=== PATIENT | male | born 1960 | race Caucasian/White ===

== ENCOUNTER 2023-07-12 07:23 | Emergency (ER) | payer OTHER, SELFPAY ==
[2023-07-12 07:36] VITALS: BP 135/88
--- NOTE | 2023-07-12 08:29 | ED.GENMED ---
History of Present Illness
<BARBARA Fritz - Last Filed: 07/12/23 15:54>
General
Chief Complaint: Musculo-Skeletal Complaint
Source: patient
Exam Limitations: none
Time Seen by Provider: 07/12/23 07:51
Nursing documentation reviewed up to this point in time: agreed with
Travel History
Have you had any contact with someone who has COVID-19?: No
Do you have any symptoms of coronavirus? Fever > 100 degrees, chills, cough, shortness of breath, sore throat, loss of taste or smell, muscle aches, or headache?: No
History of Present Illness
History of Present Illness:
62 yr old male presents to the ED with c/o of stiff neck that started since yesterday. Patient denies any injury. He complains of pain with movement especially moving his neck to the left. He denies any injury but was unsure if he slept wrong.
He has been taken aspirin without relief.
He also complains of a sore throat for the past 5 days. Denies any actual fever. He has a chronic cough since having COVID 4 months ago. He denies any fevers. He is concerned that this neck pain likely shingles but denies any actual rash. He
denies any radiation of pain. He denies any numbness tingling weakness of extremities.
Past History
<BARBARA Fritz - Last Filed: 07/12/23 15:54>
Past History
ED Past Medical History: HTN, Hypercholesterolemia and Other (diverticulitis)
ED Past Surgical History: Appendectomy and Bowel resection
Social History
Tobacco: Non-smoker
Alcohol: Occasional
Drug: None
Personal:
Living: with family
Employment: Employed
Review of Systems
<BARBARA Fritz - Last Filed: 07/12/23 15:54>
Review of Systems
Allergies reviewed?: Yes
All Other Systems: ROS reviewed and negative except as documented in HPI and ROS
Constitutional: Reports no symptoms; Denies fever, fatigue or chills
EENT: Reports sore throat
Respiratory: Reports cough; Denies trouble breathing
Cardiac: Reports no symptoms
ABD/GI: Reports no symptoms
: Reports no symptoms
Musculoskeletal: Reports neck pain (left sided neck pain )
Skin: Reports no symptoms; Denies rash
Neurological: Reports no symptoms; Denies numbness
Phy Exam
<BARBARA Fritz - Last Filed: 07/12/23 15:54>
General Physical Exam
General Presentation: no apparent distress
General age: appears stated age
General Skin: warm and dry
General Habitus: normal
General Mental: alert
General Hydration: appears well hydrated
ENT Exam
ENT Exam: EOMI, pharyngeal erythema and other (no swelling no drooling , no exudate )
Eye Exam
Eye Exam: PERRL
Eye Exam General: PERRL: bilateral and EOM intact: bilateral
Cardiovascular Exam
Cardiovascular Exam: regular rate/rhythm, no murmur and normal peripheral pulses
Pulmonary Exam
Pulmonary Exam: lungs clear and no respiratory distress
Neurological Exam
Neurological Exam: alert and oriented x3
Musculoskeletal Exam
Musculoskeletal Exam: other (Patient is tender to left lateral paracervical muscles with discomfort with range of motion moving neck to the left)
Skin Exam
Skin Exam: normal color and warm/dry
Psychiatric Exam
Psychiatric Exam: normal mood/affect
Course
<BARBARA Fritz - Last Filed: 07/12/23 15:54>
Orders/Labs/Results
Orders:
Orders
07/12/23 08:25
IV Insert/Care/Rem.- Treatment PRN
0.9% Sodium Chloride 1000 ml [Nss] 1,000 ml IV BOLUS
Ketorolac [Toradol] 15 mg IV NOW STA
diazePAM [Valium Injection] 2 mg IV NOW STA
07/12/23 08:28
CT Neck With Iv Contrast Urgent
Comment:
Reason For Exam: sore throat/neck pain
07/12/23 08:49
Complete Blood Count/With Diff Urgent
Comprehensive Metabolic Panel Urgent
Rapid Strep Group A Urgent
CHRISTIANO Source: Throat/Pharynx
Specimen Description:
Date Specimen was Collected: 07/12/23
Time Specimen was Collected: 08:40
07/12/23 08:51
Dexamethasone Sod Phosphate [Decadron] 10 mg IV NOW STA
Abnormal Lab Results
07/12/23
08:49
RBC 4.02 L 10^6/uL
(4.70-6.10)
Hct 38.5 L %
(39.0-52.0)
MCV 95.8 H fL
(80.0-94.0)
MCH 33.3 H pg
(27.0-31.0)
MPV 11.6 H fL
(7.4-10.4)
Abs Immat Gran (auto) 0.1 H 10^3/uL
(0-0.05)
Absolute Monos (auto) 0.7 H 10^3/uL
(0.1-0.6)
Glucose 125 H mg/dl
(70-99)
07/12/23 08:49
07/12/23 08:49
Vital Signs
Initial and Last Documented VS:
Initial Vital Signs
Temp Pulse Resp BP Pulse Ox
98.0 F 90 16 135/88 96
07/12/23 07:36 07/12/23 07:36 07/12/23 07:36 07/12/23 07:36 07/12/23 07:36
Last Documented Vital Signs
Temp Pulse Resp BP Pulse Ox
98.0 F 78 16 135/79 96
07/12/23 07:36 07/12/23 12:31 07/12/23 12:31 07/12/23 12:31 07/12/23 07:36
[address] Bailiff Or Sheriff consulted with Physician
Court Bailiff Or Sheriff consulted with physician?: Yes
Name of Physician Consulted: Deonte
<Ancelmo Clemons, - Last Filed: 07/12/23 13:17>
Orders/Labs/Results
Orders:
Orders
07/12/23 08:25
IV Insert/Care/Rem.- Treatment PRN
0.9% Sodium Chloride 1000 ml [Nss] 1,000 ml IV BOLUS
Ketorolac [Toradol] 15 mg IV NOW STA
diazePAM [Valium Injection] 2 mg IV NOW STA
07/12/23 08:28
CT Neck With Iv Contrast Urgent
Comment:
Reason For Exam: sore throat/neck pain
07/12/23 08:49
Complete Blood Count/With Diff Urgent
Comprehensive Metabolic Panel Urgent
Rapid Strep Group A Urgent
CHRISTIANO Source: Throat/Pharynx
Specimen Description:
Date Specimen was Collected: 07/12/23
Time Specimen was Collected: 08:40
07/12/23 08:51
Dexamethasone Sod Phosphate [Decadron] 10 mg IV NOW STA
Abnormal Lab Results
07/12/23
08:49
RBC 4.02 L 10^6/uL
(4.70-6.10)
Hct 38.5 L %
(39.0-52.0)
MCV 95.8 H fL
(80.0-94.0)
MCH 33.3 H pg
(27.0-31.0)
MPV 11.6 H fL
(7.4-10.4)
Abs Immat Gran (auto) 0.1 H 10^3/uL
(0-0.05)
Absolute Monos (auto) 0.7 H 10^3/uL
(0.1-0.6)
Glucose 125 H mg/dl
(70-99)
07/12/23 08:49
07/12/23 08:49
Vital Signs
Initial and Last Documented VS:
Initial Vital Signs
Temp Pulse Resp BP Pulse Ox
98.0 F 90 16 135/88 96
07/12/23 07:36 07/12/23 07:36 07/12/23 07:36 07/12/23 07:36 07/12/23 07:36
Last Documented Vital Signs
Temp Pulse Resp BP Pulse Ox
98.0 F 78 16 135/79 96
07/12/23 07:36 07/12/23 12:31 07/12/23 12:31 07/12/23 12:31 07/12/23 07:36
<BARBARA Fritz - Last Filed: 07/12/23 15:54>
MDM/Problems Addressed
Differential Diagnosis Includes:
Not limited to viral syndrome, strep throat, torticollis, less likely radicular pain less likely abscess
MDM/Problems Addressed:
Patient is a 62-year-old male who presented with left-sided neck pain worse with movement. He also complained of a sore throat for the past several days. He denies any numbness tingling weakness to left arm or pain that radiates. Patient was eval
by Dr. Clemons symptoms are likely torticollis. With sore throat neck pain CAT scan ordered and currently pending. Patient was treated with Valium Decadron feeling improved relief. Labs unremarkable.
Patient is negative for strep throat. Patient also mentioned mild complaint of knee pain will need Ortho follow-up for this.
If CT negative plan to discharge home with Valium/moist heat/NSAIDS .
1305: CT negative for abscess findings suggesting mild tonsillitis,rapid strep negative patient with normal white count stable stable hemoglobin unremarkable kidney function. Patient feeling better from IV Valium and Decadron. Symptoms are
consistent with mild sore throat viral syndrome. Likely torticollis, muscular pain.
<BARBARA Fritz - Last Filed: 07/12/23 15:54>
*Radiology
Radiology exam reviewed: radiology read reviewed
*Pulse Oximetry
Patient hypoxic: no
*Critical Care Note
Total Time (30-74mins, 75-104mins- exclusive of procedures): Not Applicable
ED Attending Note
<BARBARA Fritz - Last Filed: 07/12/23 15:54>
-
Portions of this chart may have been created with voice recognition software.� Occasional wrong word or��sound alike� substitutions may have occurred due to the inherent limitations of voice recognition software.
<Ancelmo Clemons DO - Last Filed: 07/12/23 13:17>
ED Attending Note
Patient seen and examined by attending physician: Yes
I performed the substantive portion of visit, reviewed & personally made and approve the management plan that is documented in note by myself or PAULO.: Yes
ED Attending Note:
Patient is a 62-year-old male who has a history of stiff neck and left neck pain that he awoke with couple days ago and is becoming more pain. Patient has had a sore throat for the past 5 days but denies any fever or chills. Patient's been having
a chronic cough since COVID 4 months ago. Patient does smoke. Patient denies weight loss. Patient denies any difficulty swallowing or handling his secretions. Patient is to see pulmonary in a few days. Patient denies any numbness or
paresthesias or weakness of the upper extremities or lower extremities. Patient denies any recent injuries. Physical exam patient does appear to be having moderate distress secondary to neck pain. Patient is tender along left strap muscles.
Oropharynx is erythematous with mild edema. Heart is regular lungs are clear. Patient will be treated with steroids after the CT scan and lab work was done. Patient needs benzodiazepines for muscle spasm/torticollis.
Discharge Plan
Departure
Patient Disposition: Home (Routine Discharge)
Date of Disposition: 07/12/23
Time of Disposition: 13:09
Patient with high blood pressure during this ER visit?: Yes
Condition: Fair
Discharge Problem:
Acute torticollis, Acute sore throat
Instructions: Torticollis (DC), BLOOD PRESSURE, Sore Throat - Adult
Prescriptions:
New
diazepam [Valium] 5 mg tablet
5 mg PO TID PRN (Reason: muscle spasm) Qty: 10 0RF
prednisone 50 mg tablet
50 mg PO DAILY Qty: 4 0RF
No Action
atorvastatin 80 MG tablet
80 mg PO DAILY
amlodipine 2.5 MG tablet
2.5 mg PO DAILY
valsartan [Diovan] 320 MG tablet
320 mg PO DAILY
cholecalciferol (vitamin D3) 1,000 UNITS tablet
1,000 units PO DAILY
[id number] [Centrum Silver Men] 1 EACH tablet
1 ea PO DAILY
omeprazole 20 MG tablet,disintegrat, delay rel
20 mg PO DAILY
ondansetron 4 MG tablet,disintegrating
4 mg PO TIDPRN PRN (Reason: nausea/vomiting) Qty: 9 0RF
Referrals:
Katharine Lee MD [Family Provider] -
Irvin Lacey MD [Active] -
Activity Restrictions/Additional Instructions:
As discussed you have a viral sore throat and symptoms are consistent with muscle pain of your neck, torticollis(stiff neck).
A prescription for Valium for muscle relaxer was sent to your pharmacy. This medication will cause drowsiness no driving or drinking alcohol on this medication. Avoid clonazepam while taking this medication. Warm moist heat to neck several times
a day. Do gentle range of motion exercises as discussed
Regarding sore throat a prescription for prednisone was sent to the pharmacy for the next 4 days. Take as directed. Gargle with warm salt water. Stay well-hydrated
Follow-up with your family doctor in extremities for reevaluation of your symptoms.
Regarding your history of knee pain follow up with your orthopedic doctor.
Interventions
Interventions:
*Risk Screen - Suicide Last Done: 07/12/23 07:55
*General Assessment Last Done: 07/12/23 07:55
*Neglect/Abuse Screening Last Done: 07/12/23 07:55
ED- Fall Risk Assessment Last Done: 07/12/23 07:55
*ED COVID-19 Vaccine History Last Done: 07/12/23 07:36
*Nursing Disposition Last Done: 07/12/23 13:33
ED-Musculoskeletal Assessment Last Done: 07/12/23 07:55
Discharge Date and Time
Discharge Date/Time: 07/12/23 13:34
[2023-07-12] MEDS: NSS 1000 IV (08:51)
[2023-07-12] MEDS: TORADOL 15 MG IV (08:52)
[2023-07-12] MEDS: VALIUM INJECTION 2 MG IV (08:53)
[2023-07-12 09:07] LABS: % Basophils 1.2 % (0-2); % Eosinophils 2.2 % (0-6); % Immature Granulocytes 0.5 % (0-0.5); % Lymphocytes 23.2 % (20.5-51.1); % Monocytes 7.3 % (1.7-9.3); % Neutrophils 65.6 % (42.2-75.2); Absolute Basophils 0.1 10^3/uL (0-0.2); Absolute Eosinophils 0.2 10^3/uL (0-0.7); Absolute Immature Granulocytes 0.1 10^3/uL (0-0.05); Absolute Lymphocytes 2.3 10^3/uL (1.2-3.4); Absolute Monocytes 0.7 10^3/uL (0.1-0.6); Absolute Neutrophils 6.5 10^3/uL (1.4-6.5); Hematocrit 38.5 % (39.0-52.0); Hemoglobin 13.4 g/dL (13.0-18.0); Mean Corp Hgb Conc. 34.8 g/dL (33.0-37.0); Mean Corpuscular Hgb 33.3 pg (27.0-31.0); Mean Corpuscular Volume 95.8 fL (80.0-94.0); Mean Platelet Volume 11.6 fL (7.4-10.4); Nucleated Red Blood Cells % 0 % (-); Platelet Count 221 10^3/uL (130-400); Red Blood Cell Count 4.02 10^6/uL (4.70-6.10); Red Cell Dist. Width 13.2 % (11.5-14.5); White Blood Cell Count 9.9 10^3/uL (4.8-10.8)
[2023-07-12 09:27] LABS: ALT (SGPT) 39 U/L (0-50); AST (SGOT) 38 U/L (17-59); Albumin 3.9 g/dl (3.5-5.0); Alkaline Phosphatase 61 U/L (38-126); Blood Urea Nitrogen 13 mg/dl (9-20); Calcium 9.4 mg/dl (8.4-10.2); Carbon Dioxide 30 mmol/L (22-30); Chloride 100 mmol/L (98-107); Glucose 125 mg/dl (70-99); Potassium 3.5 mmol/L (3.5-5.1); Sodium 140 mmol/L (135-145); Total Bilirubin 0.7 mg/dl (0.2-1.3); Total Protein 6.8 g/dl (6.3-8.2); eGFR > 60.00
[2023-07-12] MEDS: DECADRON 10 MG IV (09:45)
[2023-07-12 12:31] VITALS: BP 135/79
== END 2023-07-12 13:34 | disposition home or self-care (01) ==
LOC: EMR 07:23
PROVIDERS: Nurse Practitioner; EMERGENCY PHYSICIAN Emergency Medicine; FAMILY PHYSICIAN Student in an Organized Health Care Education/Training Program
DX: M43.6 Torticollis (principal); J02.9 Acute pharyngitis, unspecified; R03.0 Elevated blood-pressure reading, without diagnosis of hypertension; Z11.52 Encounter for screening for COVID-19
CPT/HCPCS: 99284; 96374; 96375 ×2; 96361; 70491; 80053; 85025; 87070; 87880; Q9967

== ENCOUNTER → 2024-12-31 09:39 | Outpatient (REF) | payer OTHER, SELFPAY | LOC: HWRAD 09:39 | PROVIDERS: ATTENDING PHYSICIAN Internal Medicine Critical Care Medicine; FAMILY PHYSICIAN Student in an Organized Health Care Education/Training Program | DX: F17.210 Nicotine dependence, cigarettes, uncomplicated (principal) | CPT/HCPCS: 71271 ==